=== PATIENT | male | born 1970 | race Caucasian/White ===

== ENCOUNTER 2017-03-24 21:26 | Emergency (ER) | payer OTHER ==
[~2017-03-24] VITALS: Ht 172.7 cm; Wt 122.9 kg
[~2017-03-24 21:26] MED LIST: ALBUTEROL2.5 MG/3 M IH; AMBIEN10 MG PO; AMLODIPINE BESYL5 MG PO; BENADRYL25 MG PO; CLOPIDOGREL75 MG PO; DUONEB 2.5-0.5 M3 ML AEROSOL; HYDROCODON-ACE1 EAC9 PO; LEVAQUIN500 MG PO; LISINOPRIL10 MG PO; MEDROL DOSEPAK4 MG PO; NORCO 5/3251 TABLET PO; PLAVIX75 MG PO; PROAIR HFA8.5 GM IH; PROTONIX20 MG PO; PROTONIX40 MG PO; PROVENTIL,2.5 MG/3 M IH; SIMVASTATIN10 MG PO; SIMVASTATIN40 MG PO; VICODIN HP 10-1 EACH PO; XOPENEX1.25 MG/0. AEROSOL; ZOLPIDEM TARTRAT5 MG PO
[2017-03-24 23:34] LABS: POINT-OF-CARE METER ID UU13113800
[2017-03-24] MEDS ORDERED: BENADRYL50 MG PO (23:46)
[2017-03-24] MEDS ORDERED: PREDNISONE10 M1 PO (23:46)
[2017-03-24 23:57] VITALS: BP 125/100
== END 2017-03-24 23:58 | disposition home or self-care (01) ==
LOC: EME 21:26
PROVIDERS: Physician Assistant
DX: L50.9 Urticaria, unspecified (principal); F17.200 Nicotine dependence, unspecified, uncomplicated
CPT/HCPCS: 82948; 99281; 99283; J1200; J2930

== ENCOUNTER 2017-05-10 00:26 | Emergency (ER) | payer OTHER ==
[~2017-05-10] VITALS: Ht 172.7 cm; Wt 120.6 kg
[~2017-05-10 00:26] MED LIST changes: +BENADRYL50 MG PO; +PREDNISONE10 M1 PO
[2017-05-10] MEDS ORDERED: PREDNISONE10 MG PO (00:40)
[2017-05-10 00:57] VITALS: BP 149/96
== END 2017-05-10 00:58 | disposition home or self-care (01) ==
LOC: EME 00:26
DX: T78.40XA Allergy, unspecified, initial encounter (principal); L30.9 Dermatitis, unspecified; J44.9 Chronic obstructive pulmonary disease, unspecified; E78.5 Hyperlipidemia, unspecified; I10 Essential (primary) hypertension; F32.9 Major depressive disorder, single episode, unspecified; K21.9 Gastro-esophageal reflux disease without esophagitis; F41.9 Anxiety disorder, unspecified; Z86.73 Personal history of transient ischemic attack (TIA), and cerebral infarction without residual deficits; F17.200 Nicotine dependence, unspecified, uncomplicated; Z88.8 Allergy status to other drugs, medicaments and biological substances
CPT/HCPCS: 99281; 99284; J7512

== ENCOUNTER 2017-05-15 01:26 | Inpatient (IN) | payer OTHER ==
[2017-05-15] VITALS (20 sets, daily range): BP systolic 112–173; BP diastolic 64–103
[~2017-05-15] VITALS: Ht 172.7 cm; Wt 120.8 kg
[~2017-05-15 01:26] MED LIST changes: +PREDNISONE10 MG PO
[2017-05-15 02:41] LABS: CREATININE 0.8 mg/dL (0.6-1.3); HEMATOCRIT 49.1 % (38.0-50.0); MCH 26.9 PG (29.0-34.0); MCHC 33.2 G/DL (30.0-36.0); MEAN PLAT.VOLUME 9.1 uM^3 (9.0-12.4); PLATELET COUNT 384 K/uL (156-360); POTASSIUM 3.6 mEq/L (3.7-5.4); RBC DIS.WIDTH-CV 14.2 % (11.8-14.6); RBC DIS.WIDTH-SD 40.9 % (39-53); RED BLOOD COUNT 6.06 M/uL (4.00-5.50); WHITE BLOOD COUNT 29.5 K/uL (4.1-10.2)
[2017-05-15] MEDS ORDERED: XANAX0.25 MG PO (03:00)
[2017-05-15] MEDS ORDERED: CALCIUM-MAGNES1 EA10 PO (03:02)
[2017-05-15] MEDS ORDERED: VITAMIN D2000 UNI1 PO (03:03)
[2017-05-15] MEDS ORDERED: CYANOCOBALAM1000 MCG PO (03:04)
[2017-05-15] MEDS ORDERED: BENADRYL50 MG PO (03:54)
[2017-05-15] MEDS ORDERED: LISINOPRIL10 MG PO (03:56)
[2017-05-15] MEDS ORDERED: HYDROCODON-ACE1 EAC8 PO (03:58)
[2017-05-15] MEDS ORDERED: AMBIEN10 MG PO (04:30)
[2017-05-15 05:43] LABS: BASOPHIL COUNT 0.1 K/uL (0-0.1); EOSINOPHIL (%) 0.2 % (0-5); HEMATOCRIT 47.6 % (38.0-50.0); IMMATURE GRANULOCYTE (%) 2.6 % (0.0-0.7); IMMATURE GRANULOCYTE COUNT 0.6 K/uL; INSTRUMENT ABS NEUTROPHIL CT 19.6 K/uL; LYMPHOCYTE COUNT 2.6 K/uL (1.0-2.8); MCH 26.8 PG (29.0-34.0); MCV 81.2 FL (86-99); MEAN PLAT.VOLUME 9.1 uM^3 (9.0-12.4); MONOCYTE (%) 2.4 % (3-12); MONOCYTE COUNT 0.6 K/uL (0-0.8); NEUTROPHIL (%) 83.5 % (45-76); NEUTROPHIL COUNT 19.6 K/uL (1.8-6.4); PLATELET COUNT 334 K/uL (156-360); RBC DIS.WIDTH-CV 14.4 % (11.8-14.6); RBC DIS.WIDTH-SD 41.7 % (39-53); RED BLOOD COUNT 5.86 M/uL (4.00-5.50); WHITE BLOOD COUNT 23.5 K/uL (4.1-10.2)
[2017-05-15 05:45] LABS: METH RESISTANT S AUREUS PCR NEGATIVE (NEGATIVE)
[2017-05-15 05:46] LABS: PROBE CHECK PASS; SPECIMEN PROCESSING CONTROL PASS
[2017-05-15 05:53] LABS: CHLORIDE 102 mEq/L (99-109); POTASSIUM 4.2 mEq/L (3.7-5.4); SODIUM 135 mEq/L (136-147)
[2017-05-15 05:54] LABS: MAGNESIUM 2.2 mg/dL (1.3-2.7)
[2017-05-15 05:56] LABS: GLUCOSE 195 mg/dL (70-99)
[2017-05-15 05:57] LABS: ANION GAP 10 MEQ/L (2-14); TOTAL BILIRUBIN 0.3 mg/dL (0.0-1.0)
[2017-05-15 05:59] LABS: ALKALINE PHOSPHATASE 100 IU/L (3-129); GFR ESTIMATE (CALCULATED) > 59 mL/min/
[2017-05-15 06:00] LABS: UREA NITROGEN (BUN) 17 mg/dL (9-23)
[2017-05-15 07:02] LABS: Estimated Average Glucose 157 mg/dL (70-123); HEMOGLOBIN A1c (GLYCOHEMOGLOB) 7.1 % HGB (Below 5.7)
[2017-05-16 00:15] VITALS: BP 171/89
[2017-05-16 00:45] VITALS: BP 148/69
[2017-05-16 03:45] VITALS: BP 107/56
[2017-05-16 09:30] VITALS: BP 135/72
[2017-05-16] MEDS ORDERED: BENADRYL50 MG PO (13:52)
[2017-05-16] MEDS ORDERED: AMOX TR-K CLV1 EAC4 PO (13:53)
[2017-05-16] MEDS ORDERED: LOPRESSOR25 MG PO (13:54)
[2017-05-16] MEDS ORDERED: PREDNISONE10 MG PO (13:54)
[2017-05-16] MEDS ORDERED: PLAVIX75 MG PO (13:55)
[2017-05-16 14:21] VITALS: BP 154/76
[2017-05-16 14:23] VITALS: BP 154/76
[2017-05-16] MEDS ORDERED: EPIPEN ADU0.3 MG/0.3 IM ×2 (14:45→15:30)
== END 2017-05-16 15:05 | disposition home or self-care (01) | DRG 916 ==
LOC: EME 01:26 → EDOF 03:22 → 4WEST 03:22 → ENRESERV 03:22 → 4WEST 04:11 → ENRESERV 22:55 → 2EAST 23:49
PROVIDERS: Emergency Medicine; Specialist
PROC: 0CJY8ZZ Inspection of Mouth and Throat, Via Natural or Artificial Opening Endoscopic (ICD-10-PCS; principal; 2017-05-15)
DX: T78.2XXA Anaphylactic shock, unspecified, initial encounter (principal); T78.3XXA Angioneurotic edema, initial encounter; J05.10 Acute epiglottitis without obstruction; R06.03 Acute respiratory distress; E11.65 Type 2 diabetes mellitus with hyperglycemia; E66.01 Morbid (severe) obesity due to excess calories; Z68.41 Body mass index [BMI] 40.0-44.9, adult; R06.1 Stridor; I10 Essential (primary) hypertension; J44.9 Chronic obstructive pulmonary disease, unspecified; K21.9 Gastro-esophageal reflux disease without esophagitis; E78.5 Hyperlipidemia, unspecified; F32.9 Major depressive disorder, single episode, unspecified; F41.9 Anxiety disorder, unspecified; Z86.73 Personal history of transient ischemic attack (TIA), and cerebral infarction without residual deficits; F17.210 Nicotine dependence, cigarettes, uncomplicated; Z71.6 Tobacco abuse counseling; Z91.19 Patient's noncompliance with other medical treatment and regimen; Z88.2 Allergy status to sulfonamides
CPT/HCPCS: 70491; 80047; 80053; 83036; 83735; 84100; 85025; 85027; 87641; 94640; 94640 76; 99202; 99281; 99285; J0295; J1200; J1644; J2930; J7030; J7050; J7512; S0028